=== PATIENT | female | born 1955 | race Caucasian/White ===

== ENCOUNTER 2022-03-14 10:29 | Outpatient (REF) | payer MEDICARE, OTHER, SELFPAY | END 2022-03-14 10:30 | disposition home or self-care (01) | LOC: HO.SH 10:29 | PROVIDERS: PCP Nurse Practitioner Family; Visit Provider Nurse Practitioner Family | DX: Z01.118 Encounter for examination of ears and hearing with other abnormal findings (principal); H91.93 Unspecified hearing loss, bilateral | CPT/HCPCS: 92557; 92567 ==